=== PATIENT | female | born 2000 | race Caucasian/White ===

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

== ENCOUNTER 2020-01-06 20:09 | Emergency (ER) | payer SELFPAY ==
[~2020-01-06] VITALS: Ht 154.9 cm; Wt 55.4 kg
[2020-01-06 20:13] VITALS: BP 105/64
[2020-01-06] MEDS ORDERED: KETOROLAC 30 MG/1 ML IM ONE (21:30)
[2020-01-06] MEDS ORDERED: KETOROLAC 30 MG/1 ML ONE (21:34)
--- NOTE | 2020-01-06 21:40 | NUR ---
Medicated per JAN, confirmed with ERP on toradol injection.
== END 2020-01-06 21:48 | disposition home or self-care (01) ==
LOC: ED 21:30
DX: R07.89 Other chest pain (principal); R06.02 Shortness of breath
CPT/HCPCS: 71046; 93005; 96372; 99283; J1885

== ENCOUNTER 2020-03-08 22:53 | Emergency (ER) | payer MEDICAID ==
[~2020-03-08] VITALS: Ht 154.9 cm; Wt 53.0 kg
--- NOTE | 2020-03-08 23:12 | NUR ---
URINE SAMPLE SENT
[2020-03-08] MEDS ORDERED: ACETAMINOPHEN 500 MG TABLET ONE (23:16)
[2020-03-08] MEDS ORDERED: ONDANSETRON ODT 4 MG ONE (23:17)
[2020-03-08 23:21] LABS: MICROSCOPIC AUTO
[2020-03-08 23:22] LABS: CULTURE INDICATED? YES
--- NOTE | 2020-03-08 23:25 | NUR ---
PT RESTING ON [place], MONITORS APPLIED, MEDICATED PER JAN, CALL LIGHT WITHIN REACH
[2020-03-08] MEDS ORDERED: ONDANSETRON ODT 4 MG PO ONE (23:30)
[2020-03-08] MEDS ORDERED: ACETAMINOPHEN 500 MG TABLET PO ONE (23:30)
[2020-03-08 23:46] LABS: BASOPHILS # (AUTO) 0.04 x10^3/uL (0-0.3); BASOPHILS % (AUTO) 1 % (0-1); EOSINOPHILS # (AUTO) 0.09 x10^3/uL (0-0.8); EOSINOPHILS % (AUTO) 1 % (1-7); LYMPHOCYTES # (AUTO) 2.61 x10^3/uL (1-6.1); LYMPHOCYTES % (AUTO) 40 % (22-44); MD NO; MEAN CORPUSCULAR HEMOGLOBIN 30.5 pg (27.0-34.8); MEAN CORPUSCULAR HGB CONC 33.7 g/dL (32.4-35.8); MEAN CORPUSCULAR VOLUME 90.3 fL (80-100); MONOCYTES % (AUTO) 9 % (2-9); NEUTROPHILS % (AUTO) 49 % (42-75); PLATELET COUNT 230 x10^3/uL (130-400); RED BLOOD COUNT 4.42 x10^6/uL (3.82-5.3); RED CELL DISTRIBUTION WIDTH 12.6 % (9.6-15.2)
[2020-03-08 23:58] LABS: ALBUMIN 3.8 g/dL (3.4-5.0); ANION GAP 5 mmol/L (5-15); CALCIUM 8.8 mg/dL (8.5-10.1); CHLORIDE 109 mmol/L (98-107); CREATININE 0.81 mg/dL (0.55-1.02)
[2020-03-09 00:50] VITALS: BP 96/58
--- NOTE | 2020-03-09 00:51 | NUR ---
pt sitting up on gurney, monitors in place, denies needs, call light within reach. awaiting ultrasound result
== END 2020-03-09 01:29 | disposition home or self-care (01) ==
LOC: ED 23:48
DX: N30.00 Acute cystitis without hematuria (principal); R10.32 Left lower quadrant pain
CPT/HCPCS: 36415; 76830; 80048; 81001; 81025; 82040; 85025; 87086; 99284; Q0162

== ENCOUNTER 2020-04-09 02:31 | Emergency (ER) | payer MEDICAID ==
[~2020-04-09] VITALS: Ht 154.9 cm; Wt 53.5 kg
[2020-04-09 02:33] VITALS: BP 114/62
== END 2020-04-09 03:14 | disposition home or self-care (01) ==
LOC: ED 02:48
DX: N76.4 Abscess of vulva (principal)
CPT/HCPCS: 99284

== ENCOUNTER 2020-06-14 15:15 | Emergency (ER) | payer MEDICAID ==
[~2020-06-14] VITALS: Ht 154.9 cm; Wt 51.2 kg
[2020-06-14 15:17] VITALS: BP 108/63
--- NOTE | 2020-06-14 15:57 | NUR ---
[employer] MANAGER: CALLED PT NO ANSWER
[2020-06-14 16:06] LABS: MICROSCOPIC AUTO
--- NOTE | 2020-06-14 16:07 | NUR ---
[employer]: CALLED PT NO ANSWER
--- NOTE | 2020-06-14 16:21 | NUR ---
[employer]: CALLED PT NO ANSWER
== END 2020-06-14 16:24 | disposition left against medical advice (07) ==
LOC: ED 16:20
DX: O26.891 Other specified pregnancy related conditions, first trimester (principal); R10.13 Epigastric pain; R10.30 Lower abdominal pain, unspecified; Z3A.01 Less than 8 weeks gestation of pregnancy; Z53.21 Procedure and treatment not carried out due to patient leaving prior to being seen by health care provider
CPT/HCPCS: 81001; 87086

== ENCOUNTER 2020-06-17 18:44 | Emergency (ER) | payer MEDICAID ==
[~2020-06-17] VITALS: Ht 154.9 cm; Wt 52.1 kg
--- NOTE | 2020-06-17 20:38 | NUR ---
PT TO ULTRASOUND AT THIS TIME. PT AWARE A UA IS NEEDED. UA CUP PROVIDED.
--- NOTE | 2020-06-17 21:30 | NUR ---
ua obtained and tubed to lab. pt given water per request. pt and spouse deny further needs at this time.
[2020-06-17 21:49] LABS: BASOPHILS # (AUTO) 0.03 x10^3/uL (0-0.3); BASOPHILS % (AUTO) 1 % (0-1); EOSINOPHILS # (AUTO) 0.09 x10^3/uL (0-0.8); EOSINOPHILS % (AUTO) 2 % (1-7); LYMPHOCYTES # (AUTO) 1.99 x10^3/uL (1-6.1); LYMPHOCYTES % (AUTO) 38 % (22-44); MD NO; MEAN CORPUSCULAR HEMOGLOBIN 30.8 pg (27.0-34.8); MEAN CORPUSCULAR HGB CONC 33.5 g/dL (32.4-35.8); MEAN CORPUSCULAR VOLUME 91.9 fL (80-100); MEAN PLATELET VOLUME 8.1 fL (7.4-10.4); MONOCYTES # (AUTO) 0.44 x10^3/uL (0-1.4); MONOCYTES % (AUTO) 9 % (2-9); NEUTROPHILS # (AUTO) 2.67 x10^3/uL (1.8-8.0); NEUTROPHILS % (AUTO) 51 % (42-75); PLATELET COUNT 206 x10^3/uL (130-400); RED BLOOD COUNT 4.06 x10^6/uL (3.82-5.3); RED CELL DISTRIBUTION WIDTH 11.7 % (9.6-15.2)
[2020-06-17 21:59] LABS: ALBUMIN 3.4 g/dL (3.4-5.0); ANION GAP 4 mmol/L (5-15); CALCIUM 8.4 mg/dL (8.5-10.1); CHLORIDE 111 mmol/L (98-107); CREATININE 0.65 mg/dL (0.55-1.02)
[2020-06-17 22:22] LABS: MICROSCOPIC INDICATED
[2020-06-17 22:59] VITALS: BP 105/74
== END 2020-06-17 23:01 | disposition home or self-care (01) ==
LOC: ED 19:14
DX: O20.0 Threatened abortion (principal); R10.84 Generalized abdominal pain; R11.0 Nausea; Z3A.01 Less than 8 weeks gestation of pregnancy
CPT/HCPCS: 36415; 76830; 80048; 81001; 82040; 84702; 85025; 86901; 87086; 99284

== ENCOUNTER 2020-06-22 07:29 | Emergency (ER) | payer MEDICAID ==
[~2020-06-22] VITALS: Ht 154.9 cm; Wt 52.3 kg
--- NOTE | 2020-06-22 08:10 | NUR ---
PT HERE 5 DAYS AGO FOR CRAMPING AND VAG BLEEDING/SPOTTING, PT RETURNS SHE WAS TOLD TO HAVE HER LEVELS REDRAWN. PT WITH INCREASE IN VAGINAL BLEEDING, NOW HAVING BACK ACHES.
[2020-06-22 08:30] LABS: BASOPHILS # (AUTO) 0.02 x10^3/uL (0-0.3); BASOPHILS % (AUTO) 0 % (0-1); EOSINOPHILS # (AUTO) 0.07 x10^3/uL (0-0.8); EOSINOPHILS % (AUTO) 2 % (1-7); LYMPHOCYTES # (AUTO) 1.56 x10^3/uL (1-6.1); LYMPHOCYTES % (AUTO) 34 % (22-44); MD NO; MEAN CORPUSCULAR HEMOGLOBIN 30.5 pg (27.0-34.8); MEAN CORPUSCULAR HGB CONC 33.2 g/dL (32.4-35.8); MEAN PLATELET VOLUME 7.5 fL (7.4-10.4); MONOCYTES # (AUTO) 0.37 x10^3/uL (0-1.4); MONOCYTES % (AUTO) 8 % (2-9); NEUTROPHILS # (AUTO) 2.61 x10^3/uL (1.8-8.0); NEUTROPHILS % (AUTO) 56 % (42-75); PLATELET COUNT 208 x10^3/uL (130-400); RED BLOOD COUNT 4.16 x10^6/uL (3.82-5.3); RED CELL DISTRIBUTION WIDTH 11.9 % (9.6-15.2)
[2020-06-22 08:40] LABS: ALBUMIN 3.5 g/dL (3.4-5.0); ANION GAP 6 mmol/L (5-15); CALCIUM 8.4 mg/dL (8.5-10.1); CHLORIDE 109 mmol/L (98-107)
[2020-06-22 08:58] LABS: CREATININE 0.62 mg/dL (0.55-1.02)
[2020-06-22 09:12] VITALS: BP 92/58
--- NOTE | 2020-06-22 09:13 | NUR ---
PT BACK FROM [place], DENIES NEEDS
== END 2020-06-22 10:23 | disposition home or self-care (01) ==
LOC: ED 09:52
DX: O20.0 Threatened abortion (principal); R10.2 Pelvic and perineal pain; Z3A.01 Less than 8 weeks gestation of pregnancy
CPT/HCPCS: 36415; 76801; 80048; 82040; 84702; 85025; 99284